=== PATIENT | female | born 1955 | race American Indian/Alaskan Native ===

== ENCOUNTER 2016-12-07 23:08 | Inpatient (IN) | payer BC ==
[2016-12-08 00:37] LABS: Basophils % (Auto) 1.1 % (0.0-1.8); Eosinophils % (Auto) 2.7 % (0.0-4.3); Hemoglobin 11.7 gm/dl (10.1-14.3); Mean Corpuscular HGB Conc 32 % (30-34); Mean Corpuscular Volume 77 fl (79-97); Platelet Count 261 K/mm3 (140-440); Red Blood Count 4.82 M/mm3 (3.65-5.03); Red Cell Distribution Width 15.1 % (13.2-15.2); White Blood Count 10.1 K/mm3 (4.5-11.0)
[2016-12-08 00:39] LABS: Mean Corpuscular Hemoglobin 24 pg (28-32)
[2016-12-08 00:58] LABS: BUN/Creatinine Ratio 21.42; Blood Urea Nitrogen 15 mg/dL (7-17); Calcium 8.9 mg/dL (8.4-10.2); Carbon Dioxide 30 mmol/L (22-30); Glucose 109 mg/dL (65-100)
[2016-12-08 00:59] LABS: Anion Gap 15 mmol/L; Chloride 97.3 mmol/L (98-107); Potassium 3.6 mmol/L (3.6-5.0); Sodium 139 mmol/L (137-145)
[2016-12-08 01:29] LABS: INR 0.95 (0.87-1.13)
[2016-12-08 01:30] LABS: Partial Thromboplastin Time 38.2 Sec. (24.2-36.6)
--- NOTE | 2016-12-08 09:33 | Emergency Department Report ---
ED Shortness of Breath HPI - General Chief Complaint: Dyspnea/Respdistress Stated Complaint: SOB Time Seen by Provider: 12/08/16 09:31 Source: patient Mode of arrival: Ambulatory Limitations: Physical Limitation - History of Present Illness Initial Comments: Patient presents to the emergency room for evaluation of difficulty in breathing. She complains of dyspnea on exertion and now at rest. She is status post perhaps a septaloplasty for hypertrophic cardiomyopathy in October 2016. She also must have a low EF and she has an AICD. She does know that she has history of congestive heart failure. She states that she sees Dr. De Souza and had her cardiac surgery at [facility]. Recently she's had some PND and orthopnea. She states she is compliant with her medication other than this morning and she has been here. She denies any significant cough fever or chills. She states she has incisional pain but does not report any on chest discomfort acutely. She denies recent travel leg pain or swelling. MD Complaint: shortness of breath -: Gradual, days(s) Consistency: intermittent Improves With: nothing Worsens With: exertion Context: other Associated Symptoms: denies other symptoms - Related Data Home Medications Medication Instructions Recorded Confirmed Last Taken Aspirin [Aspirin BABY CHEW TAB] 81 mg PO DAILY 04/15/16 04/15/16 04/14/16 Furosemide [Lasix] 20 mg PO DAILY 12/08/16 12/08/16 12/07/16 Gabapentin [Neurontin] 300 mg PO Q8HR PRN 12/08/16 12/08/16 12/07/16 Potassium Chloride [Potassium 10 meq PO DAILY 12/08/16 12/08/16 12/07/16 Chloride] Previous Rx's Medication Instructions Recorded Last Taken Type Losartan/Hydrochlorothiazide 1 tab PO DAILY #30 tablet 03/30/16 04/14/16 Rx [Hyzaar 100-25 TAB] Pantoprazole [Protonix TAB] 40 mg PO BID #60 tablet 03/30/16 04/14/16 Rx Allergies Allergy/AdvReac Type Severity Reaction Status Date / Time morphine Allergy Hives Verified 07/30/13 16:19 ED Review of Systems ROS: Stated complaint: SOB Other details as noted in HPI Constitutional: denies: chills, fever Eyes: denies: eye pain, eye discharge, vision change ENT: denies: ear pain, throat pain Respiratory: shortness of breath. denies: cough, wheezing Cardiovascular: chest pain (chronic incisional pain). denies: palpitations Endocrine: no symptoms reported Gastrointestinal: denies: abdominal pain, nausea, diarrhea Genitourinary: denies: urgency, dysuria, discharge Musculoskeletal: denies: back pain, joint swelling, arthralgia Skin: denies: rash, lesions Neurological: denies: headache, weakness, paresthesias Psychiatric: denies: anxiety, depression Hematological/Lymphatic: denies: easy bleeding, easy bruising ED Past Medical Hx - Past Medical History Previous Medical History?: Yes Hx Hypertension: Yes Hx Congestive Heart Failure: Yes Hx Diabetes: No Hx GERD: Yes Hx Arthritis: Yes Hx Asthma: No Hx COPD: No Additional medical history: Open heart surgery and defibrillator placement September 2016 - Surgical History Hx Cholecystectomy: Yes Additional Surgical History: hysterectomy - Social History Smoking Status: Former Smoker Substance Use Type: None - Medications Home Medications: Home Medications Medication Instructions Recorded Confirmed Last Taken Type Losartan/Hydrochlorothiazide 1 tab PO DAILY #30 tablet 03/30/16 04/15/16 Rx [Hyzaar 100-25 TAB] Pantoprazole [Protonix TAB] 40 mg PO BID #60 tablet 03/30/16 04/15/16 04/14/16 Rx Aspirin [Aspirin BABY CHEW TAB] 81 mg PO DAILY 04/15/16 04/15/16 04/14/16 History Furosemide [Lasix] 20 mg PO DAILY 12/08/16 12/08/16 12/07/16 History Gabapentin [Neurontin] 300 mg PO Q8HR PRN 12/08/16 12/08/16 12/07/16 History Potassium Chloride [Potassium 10 meq PO DAILY 12/08/16 12/08/16 12/07/16 History Chloride] ED Physical Exam - General Limitations: Physical Limitation General appearance: alert, in no apparent distress, obese - Head Head exam: Present: atraumatic, normocephalic - Eye Eye exam: Present: normal appearance, PERRL, EOMI. Absent: scleral icterus - ENT ENT exam: Present: mucous membranes moist - Neck Neck exam: Present: normal inspection - Respiratory Respiratory exam: Present: decreased breath sounds. Absent: respiratory distress, accessory muscle use - Cardiovascular Cardiovascular Exam: Present: regular rate, normal rhythm. Absent: systolic murmur, diastolic murmur, rubs, gallop - GI/Abdominal GI/Abdominal exam: Present: soft, normal bowel sounds. Absent: distended, tenderness, guarding, rebound, rigid - Extremities Exam Extremities exam: Present: normal inspection, other (bilateral leg edema). Absent: tenderness, calf tenderness - Back Exam Back exam: Present: normal inspection - Neurological Exam Neurological exam: Present: alert, oriented X3, CN II-XII intact. Absent: motor sensory deficit - Psychiatric Psychiatric exam: Present: normal affect, normal mood - Skin Skin exam: Present: warm, dry, intact, normal color. Absent: rash ED Course Vital Signs 12/07/16 12/08/16 12/08/16 23:57 07:46 08:00 Temperature 98.8 F Pulse Rate 72 71 69 Respiratory 20 23 21 Rate Blood Pressure 178/116 159/99 O2 Sat by Pulse 95 98 96 Oximetry 12/08/16 12/08/16 12/08/16 08:38 09:00 09:30 Temperature Pulse Rate 80 75 70 Respiratory 33 H 20 19 Rate Blood Pressure 165/99 188/115 165/99 O2 Sat by Pulse 90 97 96 Oximetry 12/08/16 12/08/16 10:00 10:30 Temperature Pulse Rate 64 63 Respiratory 26 H 23 Rate Blood Pressure 196/94 174/107 O2 Sat by Pulse 98 97 Oximetry - Reevaluation(s) Reevaluation #1: Patient was given Lasix, Nitropaste, aspirin. Previous cardiac cath showed patent vessels essentially with the Brockenbrough phenomenon (occurs during left ventricular outflow tract obstruction such as in patients with hypertrophic obstructive cardiomyopathy (HOCM) and is defined as an increase in pulse pressure after an ectopic beat (usually a premature ventricular contraction or PVC). This can be direction measured during invasive cardiac catheterization or seen on echocardiography). 12/08/16 11:47 Reevaluation #2: Chest x-ray shows remarkable increase in cardiac size. I wouldn't exclude significant pericardial effusion. Therefore I am going to order an urgent echocardiogram. 12/08/16 11:50 ED Medical Decision Making - Lab Data Result diagrams: 12/08/16 00:24 12/08/16 00:24 Laboratory Results - last 24 hr 12/08/16 12/08/16 12/08/16 00:24 00:24 00:24 WBC 10.1 RBC 4.82 Hgb 11.7 Hct 37.0 MCV 77 L MCH 24 L MCHC 32 RDW 15.1 Plt Count 261 Lymph % (Auto) 30.7 [place] % (Auto) 5.5 Eos % (Auto) 2.7 Baso % (Auto) 1.1 Lymph # 3.1 [place] # 0.6 Eos # 0.3 Baso # 0.1 Seg Neutrophils % 60.0 Seg Neutrophils # 6.1 PT 13.2 INR 0.95 APTT 38.2 H Sodium 139 Potassium 3.6 Chloride 97.3 L Carbon Dioxide 30 Anion Gap 15 BUN 15 Creatinine 0.7 Estimated GFR > 60 BUN/Creatinine Ratio 21.42 Glucose 109 H Calcium 8.9 Troponin T < 0.010 NT-Pro-B Natriuret Pep 12/08/16 12/08/16 12/08/16 00:24 03:29 06:32 WBC RBC Hgb Hct MCV MCH MCHC RDW Plt Count Lymph % (Auto) [place] % (Auto) Eos % (Auto) Baso % (Auto) Lymph # [place] # Eos # Baso # Seg Neutrophils % Seg Neutrophils # PT INR APTT Sodium Potassium Chloride Carbon Dioxide Anion Gap BUN Creatinine Estimated GFR BUN/Creatinine Ratio Glucose Calcium Troponin T < 0.010 < 0.010 NT-Pro-B Natriuret Pep 891.6 - EKG Data -: EKG Interpreted by Me EKG shows normal: sinus rhythm Rate: normal - EKG Data When compared to previous EKG there are: changes noted Interpretation: other (left bundle branch block is present previously present on last cardiogram however patient is status post septoplasty now) - Radiology Data interpreted by me: Chest x-ray shows severe cardiomegaly but no gross decompensation. Critical care attestation.: If time is entered above; I have spent that time in minutes in the direct care of this critically ill patient, excluding procedure time. ED Disposition Clinical Impression: Accelerated essential hypertension, Hypertrophic cardiomyopathy CHF (congestive heart failure) Qualifiers: Congestive heart failure type: unspecified congestive heart failure type Congestive heart failure chronicity: acute on chronic Qualified Code(s): I50.9 - Heart failure, unspecified Disposition: OP ADMIT IP TO THIS HOSP Is pt being admited?: Yes Does the pt Need Aspirin: Yes Condition: Stable Instructions: Hypertension (ED) Referrals: PRIMARY CARE, [Primary Care Provider] - 3-5 Days Time of Disposition: 14:39
--- NOTE | 2016-12-08 09:56 | XRay Report ---
AP CHEST: HISTORY: Hypertension There is severe cardiomegaly which has increased considerably since 03/28/16. A large pericardial effusion could be present. Moderate pulmonary venous congestion. There is poor visualization of the left lower lobe, although, there is no obvious infiltrate, large pleural effusion or pneumothorax. A 2-lead pacemaker device has been inserted since the previous exam. IMPRESSION: Severe cardiomegaly.
[2016-12-08] MEDS ORDERED: ZOFRAN IV PRN ×2 (10:53→14:34)
[2016-12-08] MEDS ORDERED: MILK OF MAGNESIA PO PRN (10:53)
[2016-12-08] MEDS ORDERED: TYLENOL PO PRN (10:53)
[2016-12-08] MEDS ORDERED: DULCOLAX PR PRN (10:53)
[2016-12-08] MEDS ORDERED: MORPHINE IV PRN (11:02)
[2016-12-08] MEDS ORDERED: NITROSTAT SL PRN (11:02)
--- NOTE | 2016-12-08 11:04 | History and Physical Report ---
History of Present Illness Date of examination: 12/08/16 Date of admission: 12/08/2016 Chief complaint: Shortness of breath History of present illness: Patient is a 48 yo -[place] woman with a history of uncontrolled HTN, S/ P septaloplasty for hypertrophic cardiomyopathy in September 2016 at [facility] and subsequent AICD on October 09, 2016. Patient presenting with 5 days of worsening dyspnea on light exertion, shortnesses of breath. Just over 6 days ago the patient was at her normal baseline state of health. Now she has had progressive worsening of her dyspnea on exertion (GARY) to where she cannot walk across a room or talk while sitting up without becoming short of breath. She rates her breathing troubles as a 7 of 10, with 10 being cant breathe at all and 1 being normal. She has had the GARY over years but progressive worsening in the last 6 days. She states that she feels as though there is a rattling in her chest. Patient states that this morning while she trying to get up and walk shortly thereafter, became SOB. She felt like she could not catch her breath and got worried so she called 911 and they brought her to the ED. She continues to have 3-4 pillow orthopnea and GARY, PND, peripheral edema but is currently denying abdominal distention. She denies chest pain ,but she have incisional pain at her open heart surgery site. Patient denies COPD, cough fever or chills. Patient reported that she sees and her cardiac surgery at [facility]. Past History Past Medical History: GERD, heart failure, hypertension, other (eptaloplasty for hypertrophic cardiomyopathy in October 2016. ) Past Surgical History: Other (open heart surgery and AICD (09/2016).) Social history: lives with family Family history: diabetes, hypertension Medications and Allergies Allergies Allergy/AdvReac Type Severity Reaction Status Date / Time morphine Allergy Hives Verified 07/30/13 16:19 Home Medications Medication Instructions Recorded Confirmed Last Taken Type Losartan/Hydrochlorothiazide 1 tab PO DAILY #30 tablet 03/30/16 12/08/16 Rx [Hyzaar 100-25 TAB] Pantoprazole [Protonix TAB] 40 mg PO BID #60 tablet 03/30/16 12/08/16 12/07/16 Rx Aspirin [Aspirin BABY CHEW TAB] 81 mg PO DAILY 04/15/16 12/08/16 12/07/16 History Furosemide [Lasix] 20 mg PO DAILY 12/08/16 12/08/16 12/07/16 History Gabapentin [Neurontin] 300 mg PO Q8HR PRN 12/08/16 12/08/16 12/07/16 History Potassium Chloride [Potassium 10 meq PO DAILY 12/08/16 12/08/16 12/07/16 History Chloride] Active Meds: Active Medications Acetaminophen (Tylenol) 650 mg PO Q4H PRN PRN Reason: Pain MILD(1-3)/Fever >100.5/[place] Bisacodyl (Dulcolax) 10 mg PA QDAY PRN PRN Reason: Constipation unrelieved by MOM Enoxaparin Sodium (Lovenox) 40 mg SUB-Q QDAY ANNETTE Magnesium Hydroxide (Milk Of Magnesia) 30 ml PO Q4H PRN PRN Reason: Constipation Ondansetron HCl (Zofran) 4 mg IV Q8H PRN PRN Reason: N/V unrelieved by Reglan Review of Systems Constitutional: weight gain, fatigue, poor appetite, no weight loss, no fever, no chills, no sweats, no night sweats Ears, nose, mouth and throat: no ear pain, no ear discharge, no tinnitis, no decreased hearing, no nose pain, no nasal congestion Breasts: no normal, no change in shape, no swelling Cardiovascular: orthopnea, shortness of breath, dyspnea on exertion, paroxysmal nocturnal dyspnea, high blood pressure Respiratory: cough, shortness of breath, dyspnea on exertion, wheezing Gastrointestinal: no abdominal pain, no nausea, no vomiting, no diarrhea, no constipation, no change in bowel habits, no hematemesis Genitourinary Female: no dyspareunia, no dysmenorrhea, no pelvic pain, no flank pain, no menorrhagia, no dysuria, no urinary frequency, no urgency, no stress incontinence, no post void dribbling Menstruation: no currently menstrual, no premenarcheal, no post hysterectomy Rectal: no pain, no incontinence Musculoskeletal: no neck stiffness, no neck pain, no shooting arm pain Integumentary: no rash, no pruritis, no redness Neurological: no head injury, no transient paralysis, no paralysis, no weakness , no parathesias Psychiatric: no anxiety, no memory loss, no change in sleep habits, no sleep disturbances, no insomnia Endocrine: no cold intolerance, no heat intolerance, no polyphagia, no excessive thirst Hematologic/Lymphatic: no easy bruising, no easy bleeding Allergic/Immunologic: no urticaria, no allergic rhinitis Exam - Constitutional Vitals: Temp Pulse Resp BP Pulse Ox 98.8 F 63 23 174/107 97 12/07/16 23:57 12/08/16 10:30 12/08/16 10:30 12/08/16 10:30 12/08/16 10:30 General appearance: Present: no acute distress, well-nourished - EENT Eyes: Present: PERRL ENT: hearing intact - Neck Neck: Present: supple - Respiratory Respiratory effort: labored Respiratory: bilateral: rales, wheezing - Extremities Extremities: no ischemia Extremity abnormal: edema (generalzied ) - Abdominal General gastrointestinal: Present: soft, non-tender Female genitourinary: Present: deferred - Rectal Rectal Exam: deferred - Integumentary Integumentary: Present: clear - Musculoskeletal Musculoskeletal: gait normal, strength equal bilaterally - Psychiatric Psychiatric: appropriate mood/affect - Neurologic Neurologic: CNII-XII intact - Allied Health Allied health notes reviewed: nursing Results - Labs CBC & Chem 7: 12/08/16 00:24 12/08/16 00:24 Labs: Abnormal lab results 12/08/16 12/08/16 12/08/16 Range/Units 00:24 00:24 00:24 MCV 77 L (79-97) fl MCH 24 L (28-32) pg APTT 38.2 H (24.2-36.6) Sec. Chloride 97.3 L (98-107) mmol/L Glucose 109 H (65-100) mg/dL - Imaging and Cardiology Chest x-ray: image reviewed (Severe Cardiomegaly) Assessment and Plan Patient is a 48 yo -[place] woman with a history of uncontrolled HTN, S/ P septaloplasty for hypertrophic cardiomyopathy in September 2016 at [facility] and subsequent AICD on October 09, 2016. Patient presenting with 5 days of worsening dyspnea on light exertion, shortnesses of breath. Just over 6 days ago the patient was at her normal baseline state of health. Now she has had progressive worsening of her dyspnea on exertion (GARY) to where she cannot walk across a room or talk while sitting up without becoming short of breath. She rates her breathing troubles as a 7 of 10, with 10 being cant breathe at all and 1 being normal. She has had the GARY over years but progressive worsening in the last 6 days. She states that she feels as though there is a rattling in her chest. Patient states that this morning while she trying to get up and walk shortly thereafter, became SOB. She felt like she could not catch her breath and got worried so she called 911 and they brought her to the ED. She continues to have 3-4 pillow orthopnea and GARY, PND, peripheral edema but is currently denying abdominal distention. She denies chest pain ,but she have incisional pain at her open heart surgery site. Patient denies COPD, cough fever or chills. Patient reported that she sees and her cardiac surgery at [facility]. Cxr severe cardiomegaly. 1. Acute on chronic combined systolic (congestive) and diastolic (congestive) heart failure We will admit to Telemetry Patient had recent Echocardiogram Lasix 40mg IV BID, Beta, Blockers, IRISH inhibitor Strict I/O's and daily weights Low-Sodium/ cardiac diet, Fluid restriction 1200ml in 24 hrs Closely monitor electrolytes Cardiology evaluation, input appreciate 2. Accelerated Hypertension We will resume home blood pressure medicen IV hydrazine PRN Q4hrs per systolic blood pressure >160 3. Obesity Discussed with the patient about the importance of physical exercise and low- fat diet reducing intake of high-fat foods to improve cardiovascular disease 4. DVT/GI prophylaxis Lovenox/Protonix Patient full code 5. HOC Cardiology to evaluate and manage Carefully with vasodilators. d/c NTG patch
[2016-12-08] MEDS ORDERED: LASIX ONE (11:41)
[2016-12-08] MEDS ORDERED: K-DUR PO ONE ×2 (11:41→11:43)
[2016-12-08] MEDS ORDERED: NITRO-BID 2% TP ONE (11:43)
[2016-12-08] MEDS ORDERED: LASIX IV ONE (11:43)
[2016-12-08] MEDS ORDERED: BABY ASPIRIN PO ONE (11:44)
--- NOTE | 2016-12-08 11:53 | Admit Criteria Form ---
Admission Criteria Documentation: CARDIOLOGY GRG Clinical Indications for Admission to Inpatient Care ( Place 'X' for any and all applicable criteria): Hospital admission is needed for appropriate care of the patient because of ANY ONE of the following (1): [ ] I. Hemodynamic instability as indicated by ALL of the following (1)(2)(3) (4)(5) [ ]a) Vital signs or other findings not as expected for chronic patient condition or baseline [ ]b) Instability indicated by ANY ONE of the following: [ ]i) Hypotension [ ]ii) Symptomatic Tachycardia unresponsive to treatment ( e.g., analgesia, fluids, sedation as indicated) [ ]iii) Inadequate perfusion indicated by ANY ONE of the following: [ ] 1) Lactic acidosis (> 2 mmol/L) [ ] 2) New abnormal capillary refill (> 3 seconds) [ ] 3) Reduced urine output [ ] 4) New altered mental status [ ]iv) Orthostatic vital sign changes unresponsive to treatment (e.g., fluids) [ ]v) IV inotropic or vasopressor medication required to maintain adequate blood pressure or perfusion [ ] II. Severe heart failure as indicated by ANY ONE of the following(17)(18) [ ]a) Respiratory distress [ ]b) Hypotension [ ]c) Anasarca (refractory to outpatient therapy) [ ]d) Cardiac arrhythmias of immediate concern [ ]e) Myocardial ischemia [ ] III. Cardiac arrhythmias or findings of immediate concern indicated by ANY ONE of the following (19)(20): [ ] a) Heart rhythms that are inherently dangerous or unstable indicated by ANY ONE of the following (21)(22)(23): [ ] i) Resuscitated ventricular fibrillation or cardiac arrest [ ] ii) Ventricular escape rhythm [ ] iii) Sustained ventricular tachycardia (30 seconds or more of ventricular rhythm at greater than 100 beats per minute) [ ] iv) Nonsustained ventricular tachycardia and ANY ONE of the following: [ ] 1) Suspected cardiac ischemia as cause or consequence of ventricular tachycardia [ ] 2) In setting of acute myocarditis [ ] b) Unstable cardiac conduction defects indicated by ANY ONE of the following(23)(24)(25) [ ] i) Type II second-degree atrioventricular block [ ]ii) Third-degree atrioventricular block [ ]iii) New-onset left bundle branch block with suspected myocardial ischemia [ ]c) Any heart rhythm and ANY ONE of the following (21)(22)(26)(27) (28) [ ] i) Continuous long-term ECG monitoring needed (e.g., initiation of drug requiring monitoring for more than 24 hours) [ ] ii) Patient has automatic implanted cardioverter defibrillator that is repeatedly firing, malfunctioning, or in need of immediate adjustment of settings beyond the scope of ambulatory or observation care [ ]d) Heart rhythms of concern due to ANY ONE of the following: [ ] i) Hypotension [ ] ii) Respiratory distress [ ] iii) Association with other significant symptoms (e.g., bradycardia with syncope or ongoing dizziness, supraventricular tachycardia with chest pain (14)(15)(17) [ ] IV. Monitoring for cardiac contusion beyond the scope of observation care needed [A](30)(31)(32) [ ] V. Surgical or device complication (e.g., valve replacement complication , pacemaker dysfunction) (35)(41)(44)(45)(46) [ ] . Inpatient palliative care needed. [B](49) Also use Inpatient Palliative Care Criteria [ ] VII. Nonbacterial thrombotic (marantic) endocarditis (36)(43)(47)(48) [X] VIII. Cardiology condition, symptom, or finding for which emergency and observation care has failed or are not considered appropriate. [ ] IX. Acute valvular disease requiring inpatient as indicated by ANY ONE of the following (41) [ ]a) Acute valvular regurgitation (42) [ ]b) Noninfectious valvulitis (43) [ ]c) Obstructive valve thrombosis [ ]d) Paravalvular leak [ ]e) Other significant valvular disorder remaining after emergency or observation level of care (as appropriate) [X]X. Pericardial disease requiring inpatient treatment as indicated by ANY ONE of the following (33)(34)(35)(36)(37) [ ]a) Suspected tamponade (38)(39)(40) [ ]b) Hemopericardium [ X]c) Other significant pericardial disorder remaining after emergency or observation level of care (as appropriate) [ ] XI. Cardiac ischemia beyond scope of emergency and observation care. [X] XII. Hypertension requiring inpatient treatment as indicated by ANY ONE of the following (6)(7)(8) [ ]a) SBP greater than 220 mm Hg or DBP greater than 120 mmHg despite treatment [X]b) SBP greater than 140 mm Hg or DBP greater than 100 mm Hg with evidence of acute end organ damage as indicated by ANY ONE of the following [ ] i) Altered mental status [ ] ii) Acute renal failure as indicated by new onset of ANY ONE of the following (9)(10)(11)(12)(13) [ ]1) 3-fold rise in serum creatinine from baseline [ ]2) Serum creatinine greater than 4 mg/dL ( 354 micromoles/L) with acute rise greater than 0.5 mg/dL (44.2 micromoles/L) [ ]3) Reduction of more than 75% in estimated glomerular filtration rate from baseline [ ]4) Estimated glomerular filtration rate less than 35 mL/min/1.73m2 (0.59 mL/sec/1.73m2) in child up to 18 years of age [ ]5) Cessation of urine output indicated by ALL of the following [ ]A. Adequate volume status [ ]B. Inadequate urine output as indicated by ANY ONE of the following [ ]a. Urine output less than 0.3 mL/kg/hr for 24 hours [ ]b. Anuria (urine output less than 0.1 mL/kg/hr) for 12 hours [ ] iii) Aortic dissection [ ] iv) Myocardial Ischemia [ ] v) Left ventricular heart failure [ ]vi) Retinal Hemorrhage [X]vii) Other significant finding [ ]c) Hypertension in child requiring inpatient treatment as indicated by ALL of the following(14)(15)(16) [ ] i) Outpatient treatment not effective, not available, or not appropriate [ ]ii) SBP or DBP greater than 95th percentile for age [ ]iii) Evidence of acute end organ damage as indicated by ANY ONE of the following [ ]1) Altered mental status [ ]2) Acute renal failure as indicated by new onset of ANY ONE of the following(9)(10)(11)(12)(13) [ ]A. 3-fold rise in serum creatinine from baseline [ ]B. Serum creatinine greater than 4 mg/dL (354 micromoles/L) with acute rise greater than 0.5 mg/dL (44.2 micromoles/L) [ ]C. Reduction of more than 75% in estimated glomerular filtration rate from baseline [ ]D. Estimated glomerular filtration rate less than 35 mL/min/1.73m2 (0.59 mL/sec/1.73m2) in child up to 18 years of age [ ]E. Cessation of urine output indicated by ALL of the following [ ]a. Adequate volume status [ ]b. Inadequate urine output as indicated by ANY ONE of the following [ ]i) Urine output less than 0.3 mL/kg/hr for 24 hours [ ]ii) Anuria ( urine output less than 0.1 mL/kg/hr) for 12 hours [ ]3) Severe headache [ ]4) Visual disturbance [ ]5) Retinal hemorrhage [ ]6) Other significant finding [ ]XIII. Complications of transplanted heart indicated by ANY ONE of the following(61): [ ]a) Acute graft rejection requiring inpatient management (eg, intravenous immunosuppression)(62)(63) [ ]b) Acute graft heart failure indicated by ANY ONE of the following(64): [ ]i) Hemodynamic instability [ ]ii) Cardiac arrhythmias of immediate concern [ ]iii) Pulmonary edema that is very severe (eg, mechanical ventilation needed, imminent or likely, need for 100% oxygen to keep oxygen saturation above 90%) [ ]iv) Pulmonary edema that is persistent as indicated by ALL of the following: [ ]1) New need for oxygen therapy to keep oxygen saturation above 90% (or increased FiO2 need from baseline) [ ]2) Has not improved sufficiently with emergency department or observation care IV diuretics or other heart failure treatments[E] [ ]v) Altered mental status that is severe or persistent [ ]vi) Increased creatinine (new on laboratory test) with reduction of more than 50% in estimated glomerular filtration rate from baseline [ ]vii) Progressively (ongoing) rising creatinine (known from past laboratory test) with reduction of more than 25% in estimated glomerular filtration rate from baseline [ ]viii) Acute renal failure [ ]ix) Acute peripheral ischemia (eg, examination shows pulseless, cool, mottled, or cyanotic extremity) [ ]x) Pulmonary artery catheter monitoring needed [ ]xi) Other sign or symptom of heart failure requiring inpatient treatment (ie, too severe or not responsive to outpatient and observation care treatment) [ ]c) Infection requiring inpatient management (eg, Hemodynamic instability, need for intravenous antimicrobial treatment)(66)(67)(68)(69)(70) [ ]d) Cardiac allograft vasculopathy requiring inpatient management ( eg evidence of cardiac ischemia)(71) [ ]e) Other complication of transplanted heart (eg, stroke, severe pulmonary hypertension, severe valvular dysfunction) requiring inpatient management(72) The original [facility] [employer] content created by [facility] [employer] has been revised. The portions of the content which have been revised are identified through the use of italic text or in bold, and [facility] has neither reviewed nor approved the modified material. All other unmodified content is copyright [facility] [employer]. Please see references footnoted in the original [facility] [employer] edition 2016 Admission Criteria Met: Yes
[2016-12-08] MEDS ORDERED: APRESOLINE IV PRN ×3 (13:19→23:51)
[2016-12-08] MEDS ORDERED: NEURONTIN PO PRN (14:31)
--- NOTE | 2016-12-08 14:38 | Consultation ---
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 Crowe), [employer],SL AICD in situ (placed 10/06/2016), HTN, HLP, obesity. She is followed in our office by Dr. Weaver. She presented with c/o progressively worsening GARY and orthopnea x 6 days CHECKERER HAND. She denies any chest pain, n/v, diaphoresis, dizziness, or syncope. She admits to palpitations, but states that she chronically experiences palpitations which are unchanged from baseline. She reports compliance with all of her medications. Admission CXR reveals NAF; pro- BNP WNL; Broderick negative for AMI x 2 sets; ECG shows NSR, NAF. BPs on admission noted to be elevated, HR WNL. LHC done 04/2016 showed patent coronaries, hyperdynamic LV, Brockenbrough phenomena. Cardiac MRI done 06/2016 showed severe asymmetric LVH with preserved diastolic function, EF 55%, evidence of LVOT obstruction and mitral KIMMY, moderate MR, LA severely dilated, RA mildly dilated, mild TR, small pericardial effusion. Echo 09/2016 showed EF 50%, LVOT gradient now normal, severe asymmetric LVH, moderately increased RV wall thickness, mildly dilated LA, small pericardial effusion, diastolic function indeterminate, trace MR, basal and mid inferior septum is abnormal. Past History Past Medical History: GERD, heart failure, hypertension, other (hypertrophic obstructive CMP) Past Surgical History: Other (myomectomy and AICD (09/2016).) Social history: lives with family Family history: diabetes, hypertension Medications and Allergies Allergies Allergy/AdvReac Type Severity Reaction Status Date / Time morphine Allergy Hives Verified 07/30/13 16:19 Home Medications Medication Instructions Recorded Confirmed Last Taken Type Losartan/Hydrochlorothiazide 1 tab PO DAILY #30 tablet 03/30/16 12/08/16 Rx [Hyzaar 100-25 TAB] Pantoprazole [Protonix TAB] 40 mg PO BID #60 tablet 03/30/16 12/08/16 12/07/16 Rx Aspirin [Aspirin BABY CHEW TAB] 81 mg PO DAILY 04/15/16 12/08/1617 History Furosemide [Lasix] 20 mg PO DAILY 12/08/16 12/08/16 12/07/16 History Gabapentin [Neurontin] 300 mg PO Q8HR PRN 12/08/16 12/08/16 12/07/16 History Potassium Chloride [Potassium 10 meq PO DAILY 12/08/16 12/08/16 12/07/16 History Chloride] Active Meds: Active Medications Acetaminophen (Tylenol) 650 mg PO Q4H PRN PRN Reason: Pain MILD(1-3)/Fever >100.5/[place] Bisacodyl (Dulcolax) 10 mg NC QDAY PRN PRN Reason: Constipation unrelieved by [facility] Enoxaparin Sodium (Lovenox) 40 mg SUB-Q QDAY COUNT INCLUDES THE [facility] Furosemide (Lasix) 40 mg IV BID@0600,1800 COUNT INCLUDES THE [facility] Hydralazine HCl (Apresoline) 20 mg IV Q4HR PRN PRN Reason: high bP Magnesium Hydroxide (Milk Of Magnesia) 30 ml PO Q4H PRN PRN Reason: Constipation Nitroglycerin (Nitrostat) 0.4 mg SL .Q5MIN PRN PRN Reason: Chest Pain Ondansetron HCl (Zofran) 4 mg IV Q8H PRN PRN Reason: N/V unrelieved by Reglan Potassium Chloride (K-Dur) 40 meq PO BID COUNT INCLUDES THE [facility] Last Admin: 12/08/16 11:52 Dose: 40 meq Review of Systems Constitutional: no weight loss, no weight gain, no fever, no chills, no sweats Ears, nose, mouth and throat: no ear pain, no nose pain, no sinus pressure, no sinus pain Cardiovascular: orthopnea, palpitations, shortness of breath, dyspnea on exertion, decreased exercise tolerance, no chest pain, no rapid/irregular heart beat, no edema, no syncope, no lightheadedness, no leg edema Respiratory: shortness of breath, dyspnea on exertion, no cough, no congestion, no wheezing, no pain Gastrointestinal: no abdominal pain, no nausea, no vomiting, no diarrhea, no constipation, no change in bowel habits Genitourinary Female: no pelvic pain, no flank pain, no dysuria, no urinary frequency, no urgency Musculoskeletal: no neck stiffness, no neck pain, no shooting arm pain, no arm numbness/tingling, no low back pain, no shooting leg pain, no leg numbness/ tingling, no redness of joints Integumentary: no rash, no pruritis, no redness, no sores Neurological: no head injury, no paralysis, no weakness, no parathesias, no numbness, no tingling, no seizures, no syncope Endocrine: no cold intolerance, no heat intolerance Hematologic/Lymphatic: no easy bruising, no easy bleeding, no lymphadenopathy Allergic/Immunologic: no urticaria, no wheezing, no persistent infections Physical Examination Vital Signs Temp Pulse Resp BP Pulse Ox 98.8 F 72 20 178/116 95 12/07/16 23:57 12/07/16 23:57 12/07/16 23:57 12/07/16 23:57 12/07/16 23:57 General appearance: no acute distress HEENT: Positive: PERRL, Normocephaly, Mucus Membranes Moist Neck: Positive: neck supple, trachea midline Cardiac: Positive: Reg Rate and Rhythm, S1/S2 Lungs: Positive: clear to auscultation Neuro: Positive: Grossly Intact, Cranial Nerve 2-12 Intact Abdomen: Positive: Soft, Active Bowel Sounds. Negative: Tender Skin: Positive: Clear, Other (sternotomy scar noted; AICD implantation site scar noted) Musculoskeletal: No Pain, Normal Range of Motion Extremities: Present: edema (trace BLE ) Results 12/08/16 00:24 12/08/16 00:24 - Imaging and Cardiology Echo: report reviewed Cardiac cath: report reviewed EKG: report reviewed, image reviewed EKG interpretations - Telemetry EKG Rhythm: Sinus Rhythm - EKG Sinus rhythms and dysrhythmias: sinus rhythm AV and intraventricular conduction: left bundle branch block Assessment and Plan Assessment: Large pericardial effusion Dyspnea / orthopnea - CXR reveals NAF; pro-BNP WNL. Accelerated HTN Hypertrophic obstructive CMP - s/p myomectomy 09/26/[address] Amrita GUERRA in situ -placed 10/06/2016 HTN HLP Obesity Plan: Await final echo read. Preliminary read reveals large pericardial effusion without evidence of tamponade. Increase Toprol XL to 50mg daily. D/c IV PRN hydralazine. D/c diuretics as there is no clinical evidence of heart failure. D/c nitrates. Recommend cautious alteration of preload and/or afterload in the setting of hypertrophic obstructive CMP. Cont tele. Monitor closely for signs/symptoms of hemodynamic instability. Assessment and plan reviewed with pt at bedside. The patient has been seen in conjunction with Dr. Ahn who agrees with the assessment and plan of care.
[2016-12-08] MEDS ORDERED: NON-FORMULARY (Losartan/Hydrochlorothiazide [Hyzaar 100-25 Tab] 1 TAB) PO SCH (14:45)
[2016-12-08] MEDS ORDERED: TOPROL XL PO ONE (15:49)
[2016-12-08] MEDS ORDERED: COZAAR ONE ×2 (15:50→15:53)
[2016-12-08] MEDS ORDERED: TOPROL XL PO SCH (16:00)
[2016-12-08] MEDS ORDERED: LASIX IV SCH ×2 (18:00)
[2016-12-08] MEDS ORDERED: K-DUR PO SCH ×2 (22:00)
[2016-12-09 00:02] VITALS: BP 178/98
[2016-12-09] MEDS ORDERED: PROTONIX PO SCH (10:00)
[2016-12-09] MEDS ORDERED: HCTZ PO SCH (10:00)
[2016-12-09] MEDS ORDERED: COZAAR PO SCH (10:00)
[2016-12-09] MEDS ORDERED: BABY ASPIRIN PO SCH (10:00)
[2016-12-09] MEDS ORDERED: LOVENOX SUB-Q SCH (10:00)
== END 2016-12-09 00:10 | disposition other institution (70) | DRG 315 ==
LOC: ED 23:08 → 4A 12-08 10:53
PROVIDERS: ADMIT Internal Medicine; ATTEND Internal Medicine
DX: I31.3 Pericardial effusion (noninflammatory) (principal); Z68.41 Body mass index [BMI] 40.0-44.9, adult; I42.1 Obstructive hypertrophic cardiomyopathy; I10 Essential (primary) hypertension; K21.9 Gastro-esophageal reflux disease without esophagitis; M19.90 Unspecified osteoarthritis, unspecified site; E66.9 Obesity, unspecified; E78.5 Hyperlipidemia, unspecified; Z95.810 Presence of automatic (implantable) cardiac defibrillator; Z79.82 Long term (current) use of aspirin; Z90.710 Acquired absence of both cervix and uterus; Z88.5 Allergy status to narcotic agent; Z83.3 Family history of diabetes mellitus; Z82.49 Family history of ischemic heart disease and other diseases of the circulatory system
CPT/HCPCS: 36415; 71010; 80048; 83880; 84439; 84443; 84484; 85025; 85610; 85730; 93005; 93010; 93306; 94760; 96374; 99285; J0360; J1940